=== PATIENT | female | born 1950 | race Caucasian/White ===

== ENCOUNTER 2017-01-24 12:56 | Inpatient (IN) | payer MEDICARE ==
[~2017-01-24 12:56] MED LIST: HEPARIN SODIUM 1,000 UNIT/ML VIAL ONE; LIDOCAINE 1% INJ 10MG/ML (20 ML MDV) ONE
[2017-01-24] MEDS ORDERED: SODIUM CHLORIDE 0.9% 500 ML IV STA (12:58)
--- NOTE | 2017-01-24 13:11 | ED ---
General Adult HPI - General Stated complaint: overdose, suicidal Time Seen by Provider: 01/24/17 12:56 Source: RN notes reviewed - History of Present Illness Initial comments: This is a 66-year-old female who states last night at 1 AM she took 200 325 mg tabs of aspirin. Patient states she wanted to kill herself. Patient states currently she has some lower back pain but aside from that she doesn't feel that bad. Patient denies lightheadedness or dizziness. Patient states she did vomit a couple of times. Patient denies any chest pain difficulty breathing shortness of breath. Patient denies any recent fever or chills. Patient denies abdominal pain patient denies nausea vomiting diarrhea. - Related Data Home Medications Medication Instructions Recorded Confirmed ALPRAZolam [Xanax] 0.25 mg PO Q8H PRN 08/08/14 01/24/17 Aspirin 325 mg PO DAILY 08/08/14 01/24/17 Cranberry Conc/C/Bacill Coag 1 tab PO DAILY 08/08/14 01/24/17 [Cranberry Tablet] Losartan-Hctz 50-12.5 mg [Hyzaar 1 tab PO DAILY 08/08/14 01/24/17 50-12.5] Metoprolol Tartrate [Lopressor] 50 mg PO DAILY 08/08/14 01/24/17 Calcium Carbonate [Calcium] 600 mg PO DAILY 02/25/15 01/24/17 Calcium Polycarbophil [Fibercon] 625 mg PO DAILY 01/24/17 01/24/17 Multivitamins, Thera [Multivitamin 1 tab PO DAILY 01/24/17 01/24/17 (formulary)] Omeprazole 20 mg PO DAILY 01/24/17 01/24/17 Sertraline [Zoloft] 25 mg PO DAILY 01/24/17 01/24/17 Simvastatin [Zocor] 40 mg PO DAILY 01/24/17 01/24/17 Allergies Allergy/AdvReac Type Severity Reaction Status Date / Time Sulfa (Sulfonamide Allergy Rash/Hives Verified 01/24/17 14:13 Antibiotics) Review of Systems ROS Statement: Those systems with pertinent positive or pertinent negative responses have been documented in the HPI. ROS Other: All systems not noted in ROS Statement are negative. Past Medical History Past Medical History: Chest Pain / Angina, GERD/Reflux, Hyperlipidemia, Hypertension, Sleep Apnea/CPAP/BIPAP Additional Past Medical History / Comment(s): IBS, CONSTIPATION.,USES C-PAP MACHINE., STATES HAVING OCCASIONAL CHESTPAIN THIS LAST WEEK, THINKS IT MAY BE HER ACID REFLUX & ANXIETY- INSTRUCTED PT TO CALL HER DR AND INFORM HIM OF CHEST PAINS & ALSO TO LET HIM KNOW SHE IS HAVING A COLONOSCOPY TOMORROW. History of Any Multi-Drug Resistant Organisms: None Reported Past Surgical History: Adenoidectomy, Appendectomy, Breast Surgery, Section, Cholecystectomy, Tonsillectomy Additional Past Surgical History / Comment(s): BREAST LUMPECTOMY Past Anesthesia/Blood Transfusion Reactions: No Reported Reaction Additional Past Anesthesia/Blood Transfusion Reaction / Comment(s): STATES SHE WAKES UP DURING SURGERYS. Past Psychological History: Anxiety Smoking Status: Never smoker Past Alcohol Use History: Rare Past Drug Use History: None Reported - Past Family History Father Family Medical History: Cancer Additional Family Medical History / Comment(s): ESOPHAGEAL CA General Exam - General Exam Comments Initial Comments: GENERAL: Patient is well-developed and well-nourished. Patient is nontoxic and well- hydrated and is in mild distress. ENT: Neck is soft and supple. No significant lymphadenopathy is noted. Oropharynx is clear. Moist mucous membranes. Neck has full range of motion without eliciting any pain EYES: The sclera were anicteric and conjunctiva were pink and moist. Extraocular movements were intact and pupils were equal round and reactive to light. Eyelids were unremarkable. PULMONARY: Patient is tachypneic CARDIOVASCULAR: Patient is tachycardic.. ABDOMEN: Soft and nontender with normal bowel sounds. No palpable organomegaly was noted. There is no palpable pulsatile mass. SKIN: Skin is clear with no lesions or rashes and otherwise unremarkable. NEUROLOGIC: Patient is alert and oriented x3. Cranial nerves II through XII are grossly intact. Motor and sensory are also intact. Normal speech, volume and content. Symmetrical smile. MUSCULOSKELETAL: Normal extremities with adequate strength and full range of motion. No lower extremity swelling or edema. No calf tenderness. LYMPHATICS: No significant lymphadenopathy is noted PSYCHIATRIC: Patient does admit trying to kill herself. Patient states she is suicidal. Course Vital Signs 01/24/17 01/24/17 01/24/17 12:57 14:03 14:58 Temperature 96.9 F L 97.6 F Pulse Rate 116 H 124 H Respiratory 28 H 26 H 30 H Rate Blood Pressure 153/92 133/74 O2 Sat by Pulse 93 L 94 L Oximetry Procedures - Intubation Time Out Performed: Yes Sedative: Versed Paralytic: Succinylcholine Laryngoscope: Lu Size: 3 ET Tube Size: 8 ET Tube Uncuffed: No Tube Secured Location: teeth Tube Placement Confirmation: visualized tube passing through cords, equal breath sounds bilaterally, no breath sounds over epigastrium, confirmation by capnometry Patient Tolerated Procedure: well Intubation Complications: none Medical Decision Making - Medical Decision Making EKG shows sinus tachycardia with occasional PAC at 113 bpm SC interval is on a 52 QRS 70 QT interval 350 QTC is 480. Patient's EKG shows no ST segment elevation or depression or T-wave abdomen is noted. I spoke with Dr. Lucero on 2 different occasions. I spoke with Dr. Welsh spoke with Dr. Coronado and he came in to put a catheter and the patient. Patient will be getting hemodialysis in the ICU. Indicated the patient because her respiratory rate continued to be about 40 and she was starting to fatigue. - Lab Data Result diagrams: 01/24/17 13:07 01/24/17 13:07 Lab Results 01/24/17 01/24/17 01/24/17 Range/Units 13:07 13:07 13:07 WBC 21.0 H (3.8-10.6) k/uL RBC 5.82 H (3.80-5.40) m/uL Hgb 17.1 H (11.4-16.0) gm/dL Hct 51.6 H (34.0-46.0) % MCV 88.6 (80.0-100.0) fL MCH 29.4 (25.0-35.0) pg MCHC 33.1 (31.0-37.0) g/dL RDW 13.9 (11.5-15.5) % Plt Count 387 (150-450) k/uL Neutrophils % 89 % Lymphocytes % 6 % Monocytes % 4 % Eosinophils % 0 % Basophils % 0 % Neutrophils # 18.7 H (1.3-7.7) k/uL Lymphocytes # 1.2 (1.0-4.8) k/uL Monocytes # 0.7 (0-1.0) k/uL Eosinophils # 0.0 (0-0.7) k/uL Basophils # 0.1 (0-0.2) k/uL PT (9.0-12.0) sec INR (<1.1) APTT (22.0-30.0) sec Sample Site ABG pH (7.35-7.45) ABG pCO2 (35-45) mmHg ABG pO2 (83-108) mmHg ABG HCO3 (21-25) mmol/L ABG Total CO2 (19-24) mmol/L ABG O2 Saturation (94-97) % ABG Base Excess mmol/L FiO2 % Sodium 144 (137-145) mmol/L Potassium 4.1 (3.5-5.1) mmol/L Chloride 108 H (98-107) mmol/L Carbon Dioxide 13 L (22-30) mmol/L Anion Gap 23 mmol/L BUN 19 H (7-17) mg/dL Creatinine 1.10 H (0.52-1.04) mg/dL Est GFR (MDRD) Af Amer >60 (>60 ml/min/1.73 sqM) Est GFR (MDRD) Non-Af 50 (>60 ml/min/1.73 sqM) Glucose 184 H (74-99) mg/dL Calcium 11.3 H (8.4-10.2) mg/dL Total Bilirubin 0.5 (0.2-1.3) mg/dL AST 74 H (14-36) U/L ALT 56 H (9-52) U/L Alkaline Phosphatase 144 H (38-126) U/L Total Creatine Kinase 81 (30-135) U/L CK-MB (CK-2) 2.3 (0.0-2.4) ng/mL CK-MB (CK-2) Rel Index 2.8 Troponin I <0.012 (0.000-0.034) ng/mL Total Protein 7.4 (6.3-8.2) g/dL Albumin 4.0 (3.5-5.0) g/dL Urine HCG, Qual (Not Detectd) Salicylates 113.4 H* mg/dL Urine Opiates Screen (NotDetected) Ur Oxycodone Screen (NotDetected) Urine Methadone Screen (NotDetected) Ur Propoxyphene Screen (NotDetected) Acetaminophen <10.0 ug/mL Ur Barbiturates Screen (NotDetected) U Tricyclic Antidepress (NotDetected) Ur Phencyclidine Scrn (NotDetected) Ur Amphetamines Screen (NotDetected) U Methamphetamines Scrn (NotDetected) U Benzodiazepines Scrn (NotDetected) Urine Cocaine Screen (NotDetected) U Marijuana (THC) Screen (NotDetected) Serum Alcohol <10 mg/dL 01/24/17 01/24/17 01/24/17 Range/Units 13:07 13:13 13:18 WBC (3.8-10.6) k/uL RBC (3.80-5.40) m/uL Hgb (11.4-16.0) gm/dL Hct (34.0-46.0) % MCV (80.0-100.0) fL MCH (25.0-35.0) pg MCHC (31.0-37.0) g/dL RDW (11.5-15.5) % Plt Count (150-450) k/uL Neutrophils % % Lymphocytes % % Monocytes % % Eosinophils % % Basophils % % Neutrophils # (1.3-7.7) k/uL Lymphocytes # (1.0-4.8) k/uL Monocytes # (0-1.0) k/uL Eosinophils # (0-0.7) k/uL Basophils # (0-0.2) k/uL PT 10.4 (9.0-12.0) sec INR 1.0 (<1.1) APTT 19.9 L (22.0-30.0) sec Sample Site RRAD ABG pH 7.49 H (7.35-7.45) ABG pCO2 17 L* (35-45) mmHg ABG pO2 118 H (83-108) mmHg ABG HCO3 13 L (21-25) mmol/L ABG Total CO2 13 L (19-24) mmol/L ABG O2 Saturation 99.0 H (94-97) % ABG Base Excess -10.4 mmol/L FiO2 32 % Sodium (137-145) mmol/L Potassium (3.5-5.1) mmol/L Chloride (98-107) mmol/L Carbon Dioxide (22-30) mmol/L Anion Gap mmol/L BUN (7-17) mg/dL Creatinine (0.52-1.04) mg/dL Est GFR (MDRD) Af Amer (>60 ml/min/1.73 sqM) Est GFR (MDRD) Non-Af (>60 ml/min/1.73 sqM) Glucose (74-99) mg/dL Calcium (8.4-10.2) mg/dL Total Bilirubin (0.2-1.3) mg/dL AST (14-36) U/L ALT (9-52) U/L Alkaline Phosphatase (38-126) U/L Total Creatine Kinase (30-135) U/L CK-MB (CK-2) (0.0-2.4) ng/mL CK-MB (CK-2) Rel Index Troponin I (0.000-0.034) ng/mL Total Protein (6.3-8.2) g/dL Albumin (3.5-5.0) g/dL Urine HCG, Qual (Not Detectd) Salicylates mg/dL Urine Opiates Screen Not Detected (NotDetected) Ur Oxycodone Screen Not Detected (NotDetected) Urine Methadone Screen Not Detected (NotDetected) Ur Propoxyphene Screen Not Detected (NotDetected) Acetaminophen ug/mL Ur Barbiturates Screen Not Detected (NotDetected) U Tricyclic Antidepress Not Detected (NotDetected) Ur Phencyclidine Scrn Not Detected (NotDetected) Ur Amphetamines Screen Not Detected (NotDetected) U Methamphetamines Scrn Not Detected (NotDetected) U Benzodiazepines Scrn Not Detected (NotDetected) Urine Cocaine Screen Not Detected (NotDetected) U Marijuana (THC) Screen Not Detected (NotDetected) Serum Alcohol mg/dL 01/24/17 Range/Units 13:18 WBC (3.8-10.6) k/uL RBC (3.80-5.40) m/uL Hgb (11.4-16.0) gm/dL Hct (34.0-46.0) % MCV (80.0-100.0) fL MCH (25.0-35.0) pg MCHC (31.0-37.0) g/dL RDW (11.5-15.5) % Plt Count (150-450) k/uL Neutrophils % % Lymphocytes % % Monocytes % % Eosinophils % % Basophils % % Neutrophils # (1.3-7.7) k/uL Lymphocytes # (1.0-4.8) k/uL Monocytes # (0-1.0) k/uL Eosinophils # (0-0.7) k/uL Basophils # (0-0.2) k/uL PT (9.0-12.0) sec INR (<1.1) APTT (22.0-30.0) sec Sample Site ABG pH (7.35-7.45) ABG pCO2 (35-45) mmHg ABG pO2 (83-108) mmHg ABG HCO3 (21-25) mmol/L ABG Total CO2 (19-24) mmol/L ABG O2 Saturation (94-97) % ABG Base Excess mmol/L FiO2 % Sodium (137-145) mmol/L Potassium (3.5-5.1) mmol/L Chloride (98-107) mmol/L Carbon Dioxide (22-30) mmol/L Anion Gap mmol/L BUN (7-17) mg/dL Creatinine (0.52-1.04) mg/dL Est GFR (MDRD) Af Amer (>60 ml/min/1.73 sqM) Est GFR (MDRD) Non-Af (>60 ml/min/1.73 sqM) Glucose (74-99) mg/dL Calcium (8.4-10.2) mg/dL Total Bilirubin (0.2-1.3) mg/dL AST (14-36) U/L ALT (9-52) U/L Alkaline Phosphatase (38-126) U/L Total Creatine Kinase (30-135) U/L CK-MB (CK-2) (0.0-2.4) ng/mL CK-MB (CK-2) Rel Index Troponin I (0.000-0.034) ng/mL Total Protein (6.3-8.2) g/dL Albumin (3.5-5.0) g/dL Urine HCG, Qual Not Detected (Not Detectd) Salicylates mg/dL Urine Opiates Screen (NotDetected) Ur Oxycodone Screen (NotDetected) Urine Methadone Screen (NotDetected) Ur Propoxyphene Screen (NotDetected) Acetaminophen ug/mL Ur Barbiturates Screen (NotDetected) U Tricyclic Antidepress (NotDetected) Ur Phencyclidine Scrn (NotDetected) Ur Amphetamines Screen (NotDetected) U Methamphetamines Scrn (NotDetected) U Benzodiazepines Scrn (NotDetected) Urine Cocaine Screen (NotDetected) U Marijuana (THC) Screen (NotDetected) Serum Alcohol mg/dL Critical Care Time Critical Care Time: Yes Total Critical Care Time: 45 Disposition Clinical Impression: Respiratory distress, Salicylate overdose, Suicide attempt Disposition: ADMITTED IP TO THIS [facility] Time of Disposition: 15:46
[2017-01-24] MEDS ORDERED: SODIUM BICARB 8.4% 50 ML SYR (1 MEQ/ML) IV ONE ×3 (13:15)
[2017-01-24] MEDS ORDERED: DEXTROSE 5% IN WATER 1,000 ML with SODIUM BICARB (1 MEQ/ML) 150 ML IV SCH (13:15)
[2017-01-24] MEDS ORDERED: PANTOPRAZOLE 40 MG/10 ML VIAL IVP ONE (13:16)
[2017-01-24 13:19] LABS: Basophils # (A) 0.1 k/uL (0-0.2); Basophils % (A) 0 %; CH 30.6; CHCM 34.6; Eosinophils % (A) 0 %; HCT 51.6 % (34.0-46.0); HDW 2.68; HGB 17.1 gm/dL (11.4-16.0); Luc # (Auto) 0.17; Luc % (Auto) 1; Lymphocytes # (A) 1.2 k/uL (1.0-4.8); Lymphocytes % (A) 6 %; MCH 29.4 pg (25.0-35.0); MCHC 33.1 g/dL (31.0-37.0); MCV 88.6 fL (80.0-100.0); Monocytes # (A) 0.7 k/uL (0-1.0); Monocytes % (A) 4 %; Neutrophils # (A) 18.7 k/uL (1.3-7.7); Neutrophils % (A) 89 %; RBC 5.82 m/uL (3.80-5.40); RDW 13.9 % (11.5-15.5); WBC (Perox) 20.78
[2017-01-24 13:19] LABS: ABG Base Excess -10.4 mmol/L; ABG HCO3 13 mmol/L (21-25); ABG PCO2 17 mmHg (35-45); ABG PH 7.49 (7.35-7.45); ABG PO2 118 mmHg (83-108); ABG TCO2 13 mmol/L (19-24)
[2017-01-24 13:31] LABS: Prothrombin Time 10.4 sec (9.0-12.0)
[2017-01-24 13:32] LABS: ALT 56 U/L (9-52); AST 74 U/L (14-36); Acetaminophen <10.0 ug/mL; Alcohol <10 mg/dL; Alkaline Phosphatase 144 U/L (38-126); Anion Gap 23 mmol/L; Blood Urea Nitrogen 19 mg/dL (7-17); Calcium 11.3 mg/dL (8.4-10.2); Carbon Dioxide 13 mmol/L (22-30); Chloride 108 mmol/L (98-107); Glucose 184 mg/dL (74-99); Non-African American GFR(MDRD) 50 (>60 ml/min/1.73 sqM); Potassium 4.1 mmol/L (3.5-5.1); Sodium 144 mmol/L (137-145); Total Bilirubin 0.5 mg/dL (0.2-1.3); Total Protein 7.4 g/dL (6.3-8.2)
[2017-01-24 13:58] LABS: Partial Thromboplastin Time 19.9 sec (22.0-30.0)
[2017-01-24 14:03] LABS: Creatine Kinase 81 U/L (30-135)
[2017-01-24 14:08] LABS: Salicylate 113.4 mg/dL
[2017-01-24 14:14] LABS: Creatine Kinase MB 2.3 ng/mL (0.0-2.4); Troponin I <0.012 ng/mL (0.000-0.034)
[2017-01-24] MEDS ORDERED: ACTIVATED CHARCOAL-SORBITOL 50 GM/240 ML BOTTLE PO STA (14:17)
[2017-01-24] MEDS ORDERED: POTASSIUM CHLORIDE 20 MEQ, LIDOCAINE 2% INJ 20 MG in SODIUM CHLORIDE 0.9% 100 ML IVPB ONE (14:30)
--- NOTE | 2017-01-24 14:38 | XR ---
EXAMINATION TYPE: XR chest 2V DATE OF EXAM: 01/24/2017 2:27 PM COMPARISON: 12/12/2009 HISTORY: Short of breath TECHNIQUE: Frontal and lateral views of the chest are obtained. FINDINGS: There is no heart failure nor confluent pneumonic infiltrate. There are chest leads. There is no definite pleural effusion. Exam is limited slightly by obesity. IMPRESSION: No active cardiopulmonary disease. There is probably some cardiomegaly. No change compar ed to old exam.
[2017-01-24 15:03] VITALS: PULSE 124; RESP 30; TEMP 97.6
[2017-01-24] MEDS ORDERED: MIDAZOLAM (PF) 1 MG/ML 5 ML VIAL IV STA (15:34)
[2017-01-24] MEDS ORDERED: MIDAZOLAM 2 MG/2 ML VIAL IV STA (15:34)
[2017-01-24] MEDS ORDERED: NALOXONE 0.4 MG/ML 1 ML VIAL IV PRN (15:46)
--- NOTE | 2017-01-24 16:00 | XR ---
EXAMINATION TYPE: XR chest 1V portable DATE OF EXAM: 01/24/2017 3:56 PM COMPARISON: Today HISTORY: Intubation TECHNIQUE: Single frontal view of the chest is obtained. FINDINGS: Endotracheal tube has the tip in the right mainstem bronchus. There is pulmonary edema. Th ere are chest leads. IMPRESSION: Endotracheal tube is low and should be pulled back 5 to 6 cm. There is pulmonary edema t hat is worse than exam earlier today at 2:30 PM.
[2017-01-24] MEDS ORDERED: SUCCINYLCHOLINE CHLORIDE 100 MG/5 ML SYR IV STA (16:34)
[2017-01-24] MEDS ORDERED: SUCCINYLCHOLINE CHLORIDE VIAL 200 MG/10 ML VIAL IV STA (16:34)
--- NOTE | 2017-01-24 16:34 | XR ---
EXAMINATION TYPE: XR chest 1V portable DATE OF EXAM: 01/24/2017 4:28 PM COMPARISON: Today HISTORY: Check tube placement TECHNIQUE: Single frontal view of the chest is obtained. FINDINGS: There is pulmonary edema. This appears improved slightly compared to the exam 30 minutes a go. The endotracheal tube has the tip 1 to 2 cm into the right mainstem bronchus. IMPRESSION: Endotracheal tube is too low and should be pulled back 5 cm. There is pulmonary edema.
--- NOTE | 2017-01-24 16:42 | XR ---
EXAMINATION TYPE: XR chest 1V confirm line plcut DATE OF EXAM: 01/24/2017 4:35 PM COMPARISON: Today HISTORY: Check tube placement TECHNIQUE: Single frontal view of the chest is obtained. FINDINGS: There is mild pulmonary edema. Endotracheal tube is 2 cm from the jamila. Nasogastric tube appears in good position. There are clips from cholecystectomy. There are chest leads. IMPRESSION: Endotracheal tube is in fairly good position and could be pulled back 1 cm. Mild pulmona ry edema is unchanged. Nasogastric tube is in good position.
[2017-01-24] MEDS ORDERED: PROPOFOL 500 MG in EMPTY BAG 1 BAG IV SCH (17:00)
[2017-01-24] MEDS ORDERED: EPINEPHrine 10 ML SYRINGE (0.1 MG/ML) ONE (17:03)
[2017-01-24 17:31] LABS: Glucose,Whole Blood 185 mg/dL (75-99)
--- NOTE | 2017-01-24 18:05 | ED ---
CPR HPI - General Chief Complaint: Overdose Stated Complaint: overdose, suicidal Time Seen by Provider: 01/24/17 12:56 Source: RN notes reviewed, old records reviewed Mode of arrival: EMS Limitations: no limitations - History of Present Illness Initial Comments: Says this is a 66-year-old female the ER for evaluation after aspirin overdose, patient was to be admitted to ICU but prior to transfer to ICU patient blood pressure severely declined became hypoxic bradycardic and went into asystole. CPR was started at that time. Patient is known aspirin overdose - Related Data Home Medications Medication Instructions Recorded Confirmed ALPRAZolam [Xanax] 0.25 mg PO Q8H PRN 08/08/14 01/24/17 Aspirin 325 mg PO DAILY 08/08/14 01/24/17 Cranberry Conc/C/Bacill Coag 1 tab PO DAILY 08/08/14 01/24/17 [Cranberry Tablet] Losartan-Hctz 50-12.5 mg [Hyzaar 1 tab PO DAILY 08/08/14 01/24/17 50-12.5] Metoprolol Tartrate [Lopressor] 50 mg PO DAILY 08/08/14 01/24/17 Calcium Carbonate [Calcium] 600 mg PO DAILY 02/25/15 01/24/17 Calcium Polycarbophil [Fibercon] 625 mg PO DAILY 01/24/17 01/24/17 Multivitamins, Thera [Multivitamin 1 tab PO DAILY 01/24/17 01/24/17 (formulary)] Omeprazole 20 mg PO DAILY 01/24/17 01/24/17 Sertraline [Zoloft] 25 mg PO DAILY 01/24/17 01/24/17 Simvastatin [Zocor] 40 mg PO DAILY 01/24/17 01/24/17 Allergies Allergy/AdvReac Type Severity Reaction Status Date / Time Sulfa (Sulfonamide Allergy Rash/Hives Verified 01/24/17 14:13 Antibiotics) Review of Systems ROS Statement: Those systems with pertinent positive or pertinent negative responses have been documented in the HPI. ROS Other: All systems not noted in ROS Statement are negative. Past Medical History Past Medical History: Chest Pain / Angina, GERD/Reflux, Hyperlipidemia, Hypertension, Sleep Apnea/CPAP/BIPAP Additional Past Medical History / Comment(s): IBS, CONSTIPATION.,USES C-PAP MACHINE., STATES HAVING OCCASIONAL CHESTPAIN THIS LAST WEEK, THINKS IT MAY BE HER ACID REFLUX & ANXIETY- INSTRUCTED PT TO CALL HER DR AND INFORM HIM OF CHEST PAINS & ALSO TO LET HIM KNOW SHE IS HAVING A COLONOSCOPY TOMORROW. History of Any Multi-Drug Resistant Organisms: None Reported Past Surgical History: Adenoidectomy, Appendectomy, Breast Surgery, Section, Cholecystectomy, Tonsillectomy Additional Past Surgical History / Comment(s): BREAST LUMPECTOMY Past Anesthesia/Blood Transfusion Reactions: No Reported Reaction Additional Past Anesthesia/Blood Transfusion Reaction / Comment(s): STATES SHE WAKES UP DURING SURGERYS. Past Psychological History: Anxiety Smoking Status: Never smoker Past Alcohol Use History: Rare Past Drug Use History: None Reported - Past Family History Father Family Medical History: Cancer Additional Family Medical History / Comment(s): ESOPHAGEAL CA General Exam Limitations: altered mental status, physical limitation General appearance: obtunded, obese Head exam: Present: atraumatic, normocephalic, normal inspection Eye exam: Present: other (Pupils are fixed and dilated). Absent: scleral icterus, conjunctival injection, periorbital swelling ENT exam: Present: normal exam, mucous membranes moist Neck exam: Present: normal inspection. Absent: tenderness, meningismus, lymphadenopathy Respiratory exam: Present: other (Neck). Absent: respiratory distress, wheezes , rales, rhonchi, stridor Cardiovascular Exam: Present: other (Asystole). Absent: systolic murmur, diastolic murmur, rubs, gallop, clicks GI/Abdominal exam: Present: soft, normal bowel sounds. Absent: distended, tenderness, guarding, rebound, rigid Extremities exam: Present: normal inspection, full ROM, normal capillary refill. Absent: tenderness, pedal edema, joint swelling, calf tenderness Back exam: Present: normal inspection Skin exam: Present: cyanosis, pallor, mottled. Absent: rash Course Vital Signs 01/24/17 01/24/17 01/24/17 12:57 14:03 14:58 Temperature 96.9 F L 97.6 F Pulse Rate 116 H 124 H Respiratory 28 H 26 H 30 H Rate Blood Pressure 153/92 133/74 O2 Sat by Pulse 93 L 94 L Oximetry - Reevaluation(s) Reevaluation #1: 01/24/17 18:04 Spoke with family greater than 15 minutes and questions answered. He is okay at this point after 35 minutes of CPR to pronounce Reevaluation #2: 01/24/17 18:04 Patient pronounced at 1734 01/24/17 18:04 Medical Decision Making - Medical Decision Making 66-year-old year for reevaluation as her overdose, patient did have cardiopulmonary arrest, CPR was obtained treated for 30 minutes, patient no return of spontaneous circulation, patient is - Lab Data Result diagrams: 01/24/17 13:07 01/24/17 13:07 Lab Results 01/24/17 01/24/17 01/24/17 Range/Units 13:07 13:07 13:07 WBC 21.0 H (3.8-10.6) k/uL RBC 5.82 H (3.80-5.40) m/uL Hgb 17.1 H (11.4-16.0) gm/dL Hct 51.6 H (34.0-46.0) % MCV 88.6 (80.0-100.0) fL MCH 29.4 (25.0-35.0) pg MCHC 33.1 (31.0-37.0) g/dL RDW 13.9 (11.5-15.5) % Plt Count 387 (150-450) k/uL Neutrophils % 89 % Lymphocytes % 6 % Monocytes % 4 % Eosinophils % 0 % Basophils % 0 % Neutrophils # 18.7 H (1.3-7.7) k/uL Lymphocytes # 1.2 (1.0-4.8) k/uL Monocytes # 0.7 (0-1.0) k/uL Eosinophils # 0.0 (0-0.7) k/uL Basophils # 0.1 (0-0.2) k/uL PT (9.0-12.0) sec INR (<1.1) APTT (22.0-30.0) sec Sample Site ABG pH (7.35-7.45) ABG pCO2 (35-45) mmHg ABG pO2 (83-108) mmHg ABG HCO3 (21-25) mmol/L ABG Total CO2 (19-24) mmol/L ABG O2 Saturation (94-97) % ABG Base Excess mmol/L FiO2 % Sodium 144 (137-145) mmol/L Potassium 4.1 (3.5-5.1) mmol/L Chloride 108 H (98-107) mmol/L Carbon Dioxide 13 L (22-30) mmol/L Anion Gap 23 mmol/L BUN 19 H (7-17) mg/dL Creatinine 1.10 H (0.52-1.04) mg/dL Est GFR (MDRD) Af Amer >60 (>60 ml/min/1.73 sqM) Est GFR (MDRD) Non-Af 50 (>60 ml/min/1.73 sqM) Glucose 184 H (74-99) mg/dL Calcium 11.3 H (8.4-10.2) mg/dL Total Bilirubin 0.5 (0.2-1.3) mg/dL AST 74 H (14-36) U/L ALT 56 H (9-52) U/L Alkaline Phosphatase 144 H (38-126) U/L Total Creatine Kinase 81 (30-135) U/L CK-MB (CK-2) 2.3 (0.0-2.4) ng/mL CK-MB (CK-2) Rel Index 2.8 Troponin I <0.012 (0.000-0.034) ng/mL Total Protein 7.4 (6.3-8.2) g/dL Albumin 4.0 (3.5-5.0) g/dL Urine HCG, Qual (Not Detectd) Salicylates 113.4 H* mg/dL Urine Opiates Screen (NotDetected) Ur Oxycodone Screen (NotDetected) Urine Methadone Screen (NotDetected) Ur Propoxyphene Screen (NotDetected) Acetaminophen <10.0 ug/mL Ur Barbiturates Screen (NotDetected) U Tricyclic Antidepress (NotDetected) Ur Phencyclidine Scrn (NotDetected) Ur Amphetamines Screen (NotDetected) U Methamphetamines Scrn (NotDetected) U Benzodiazepines Scrn (NotDetected) Urine Cocaine Screen (NotDetected) U Marijuana (THC) Screen (NotDetected) Serum Alcohol <10 mg/dL 01/24/17 01/24/17 01/24/17 Range/Units 13:07 13:13 13:18 WBC (3.8-10.6) k/uL RBC (3.80-5.40) m/uL Hgb (11.4-16.0) gm/dL Hct (34.0-46.0) % MCV (80.0-100.0) fL MCH (25.0-35.0) pg MCHC (31.0-37.0) g/dL RDW (11.5-15.5) % Plt Count (150-450) k/uL Neutrophils % % Lymphocytes % % Monocytes % % Eosinophils % % Basophils % % Neutrophils # (1.3-7.7) k/uL Lymphocytes # (1.0-4.8) k/uL Monocytes # (0-1.0) k/uL Eosinophils # (0-0.7) k/uL Basophils # (0-0.2) k/uL PT 10.4 (9.0-12.0) sec INR 1.0 (<1.1) APTT 19.9 L (22.0-30.0) sec Sample Site RRAD ABG pH 7.49 H (7.35-7.45) ABG pCO2 17 L* (35-45) mmHg ABG pO2 118 H (83-108) mmHg ABG HCO3 13 L (21-25) mmol/L ABG Total CO2 13 L (19-24) mmol/L ABG O2 Saturation 99.0 H (94-97) % ABG Base Excess -10.4 mmol/L FiO2 32 % Sodium (137-145) mmol/L Potassium (3.5-5.1) mmol/L Chloride (98-107) mmol/L Carbon Dioxide (22-30) mmol/L Anion Gap mmol/L BUN (7-17) mg/dL Creatinine (0.52-1.04) mg/dL Est GFR (MDRD) Af Amer (>60 ml/min/1.73 sqM) Est GFR (MDRD) Non-Af (>60 ml/min/1.73 sqM) Glucose (74-99) mg/dL Calcium (8.4-10.2) mg/dL Total Bilirubin (0.2-1.3) mg/dL AST (14-36) U/L ALT (9-52) U/L Alkaline Phosphatase (38-126) U/L Total Creatine Kinase (30-135) U/L CK-MB (CK-2) (0.0-2.4) ng/mL CK-MB (CK-2) Rel Index Troponin I (0.000-0.034) ng/mL Total Protein (6.3-8.2) g/dL Albumin (3.5-5.0) g/dL Urine HCG, Qual (Not Detectd) Salicylates mg/dL Urine Opiates Screen Not Detected (NotDetected) Ur Oxycodone Screen Not Detected (NotDetected) Urine Methadone Screen Not Detected (NotDetected) Ur Propoxyphene Screen Not Detected (NotDetected) Acetaminophen ug/mL Ur Barbiturates Screen Not Detected (NotDetected) U Tricyclic Antidepress Not Detected (NotDetected) Ur Phencyclidine Scrn Not Detected (NotDetected) Ur Amphetamines Screen Not Detected (NotDetected) U Methamphetamines Scrn Not Detected (NotDetected) U Benzodiazepines Scrn Not Detected (NotDetected) Urine Cocaine Screen Not Detected (NotDetected) U Marijuana (THC) Screen Not Detected (NotDetected) Serum Alcohol mg/dL 01/24/17 Range/Units 13:18 WBC (3.8-10.6) k/uL RBC (3.80-5.40) m/uL Hgb (11.4-16.0) gm/dL Hct (34.0-46.0) % MCV (80.0-100.0) fL MCH (25.0-35.0) pg MCHC (31.0-37.0) g/dL RDW (11.5-15.5) % Plt Count (150-450) k/uL Neutrophils % % Lymphocytes % % Monocytes % % Eosinophils % % Basophils % % Neutrophils # (1.3-7.7) k/uL Lymphocytes # (1.0-4.8) k/uL Monocytes # (0-1.0) k/uL Eosinophils # (0-0.7) k/uL Basophils # (0-0.2) k/uL PT (9.0-12.0) sec INR (<1.1) APTT (22.0-30.0) sec Sample Site ABG pH (7.35-7.45) ABG pCO2 (35-45) mmHg ABG pO2 (83-108) mmHg ABG HCO3 (21-25) mmol/L ABG Total CO2 (19-24) mmol/L ABG O2 Saturation (94-97) % ABG Base Excess mmol/L FiO2 % Sodium (137-145) mmol/L Potassium (3.5-5.1) mmol/L Chloride (98-107) mmol/L Carbon Dioxide (22-30) mmol/L Anion Gap mmol/L BUN (7-17) mg/dL Creatinine (0.52-1.04) mg/dL Est GFR (MDRD) Af Amer (>60 ml/min/1.73 sqM) Est GFR (MDRD) Non-Af (>60 ml/min/1.73 sqM) Glucose (74-99) mg/dL Calcium (8.4-10.2) mg/dL Total Bilirubin (0.2-1.3) mg/dL AST (14-36) U/L ALT (9-52) U/L Alkaline Phosphatase (38-126) U/L Total Creatine Kinase (30-135) U/L CK-MB (CK-2) (0.0-2.4) ng/mL CK-MB (CK-2) Rel Index Troponin I (0.000-0.034) ng/mL Total Protein (6.3-8.2) g/dL Albumin (3.5-5.0) g/dL Urine HCG, Qual Not Detected (Not Detectd) Salicylates mg/dL Urine Opiates Screen (NotDetected) Ur Oxycodone Screen (NotDetected) Urine Methadone Screen (NotDetected) Ur Propoxyphene Screen (NotDetected) Acetaminophen ug/mL Ur Barbiturates Screen (NotDetected) U Tricyclic Antidepress (NotDetected) Ur Phencyclidine Scrn (NotDetected) Ur Amphetamines Screen (NotDetected) U Methamphetamines Scrn (NotDetected) U Benzodiazepines Scrn (NotDetected) Urine Cocaine Screen (NotDetected) U Marijuana (THC) Screen (NotDetected) Serum Alcohol mg/dL Critical Care Time Critical Care Time: Yes Total Critical Care Time: 31 Disposition Clinical Impression: Respiratory distress, Salicylate overdose, Suicide attempt, Cardiopulmonary arrest Disposition: Condition: Critical Preliminary Cause of : CPA,OD
[2017-01-24 18:14] VITALS: BP 79/53
--- NOTE | 2017-01-25 13:25 | PCN ---
DATE OF PROCEDURE: PREOPERATIVE DIAGNOSIS: Aspirin poisoning. PROCEDURE: Placement of 20 cm dialysis catheter, right femoral approach. PROCEDURE: This patient is a 66-year-old female. She has overdose of aspirin and I was called in for placement of urgent dialysis catheter for hemodialysis. The patient has been intubated in the emergency room by Dr. Roe. Right groin was shaved and prepped and draped in a sterile manner. 1% lidocaine infiltrated. Needle was introduced in right common femoral vein. Micropuncture guidewire passed. After that, 4 Indian dilator advanced on the top of the micropuncture guidewire. We removed the micropuncture guidewire and passed a regular guidewire and dilator was advanced on the top of the guidewire and then we placed a 20 cm dialysis catheter on top of the guidewire. Flushed with heparin saline and hep-locked and secured with 3-0 silk. Dressing applied. The patient tolerated the procedure well.
== END 2017-01-24 19:30 | disposition expired | DRG 918 ==
LOC: EC 12:56 → 6ICU 15:38
PROVIDERS: ADMIT Internal Medicine; ATTEND Internal Medicine
PROC: 0BH18EZ Insertion of Endotracheal Airway into Trachea, Via Natural or Artificial Opening Endoscopic (ICD-10-PCS; principal; 2017-01-24)
PROC: 5A1935Z Respiratory Ventilation, Less than 24 Consecutive Hours (ICD-10-PCS; 2017-01-24)
PROC: 5A12012 Performance of Cardiac Output, Single, Manual (ICD-10-PCS; 2017-01-24)
PROC: 06HM33Z Insertion of Infusion Device into Right Femoral Vein, Percutaneous Approach (ICD-10-PCS; 2017-01-24)
DX: T39.012A Poisoning by aspirin, intentional self-harm, initial encounter (principal); I46.9 Cardiac arrest, cause unspecified; E78.5 Hyperlipidemia, unspecified; G47.30 Sleep apnea, unspecified; K58.9 Irritable bowel syndrome, unspecified; K21.9 Gastro-esophageal reflux disease without esophagitis; F41.9 Anxiety disorder, unspecified; K59.00 Constipation, unspecified; M54.5 Low back pain; I10 Essential (primary) hypertension; Z88.2 Allergy status to sulfonamides; Z90.49 Acquired absence of other specified parts of digestive tract; Z79.899 Other long term (current) drug therapy; Z79.82 Long term (current) use of aspirin; Y92.009 Unspecified place in unspecified non-institutional (private) residence as the place of occurrence of the external cause
CPT/HCPCS: 31500; 36415; 36600; 71010; 71020; 80053; 80306; 80320; 81025; 82550; 82553; 82805; 83520; 84484; 85025; 85610; 85730; 92950; 93005; 94002; 96361; 96365; 96366; 96368; 96375; 96376; 99291